=== PATIENT | female | born 1990 | race African-American/Black ===

== ENCOUNTER 2021-01-15 13:40 | Emergency (ER) | payer OTHER ==
[~2021-01-15] VITALS: Ht 170.2 cm; Wt 61.2 kg
[2021-01-15 13:46] VITALS: BP 128/72
[2021-01-15] MEDS ORDERED: PROAIR HFA8.5 GM INH (15:08)
[2021-01-15] MEDS ORDERED: NAPROSYN500 MG PO (15:08)
--- NOTE | 2021-01-16 08:02 | EKG ---
[place] [address] [facility] [place] [address] ELECTROCARDIOGRAM REPORT Name: SHARMILA REYES Room #: [facility] Jerry#: [id number] Admission: 01/15/21 Attend Phys: Discharge: 01/15/21 Date of : [birth year] Report #: [id number] [facility] ED Test Date: 2021-01-15 Test Time: 13:59:10 Pat Name: SHARMILA REYES Department: Room: Gender: Activities Aide: REENA : 1990 Requested By: Darrian Sandhu Order Number: [id number] MD: Mick Briones Measurements Intervals [place] Rate: 101 P: 68 W[place]: 138 QRS: 41 QRSD: 94 T: 27 QT: 323 QTc: 419 Interpretive Statements Sinus tachycardia Otherwise normal No previous ECG available for comparison Electronically Signed On 01-16-2021 8:02:34 CDT by Mick Briones [email or web address] <ELECTRONICALLY SIGNED> By: Mick Briones MD, [facility] 01/16/21 [id number] Mick Briones MD, FACC /EPI
== END 2021-01-15 15:08 | disposition home or self-care (01) ==
LOC: ER 13:40
DX: R07.89 Other chest pain (principal)